=== PATIENT | male | born 1960 | race African-American/Black ===

== ENCOUNTER 2021-12-05 16:44 | Inpatient (IN) ==
[2021-12-05] MEDS ORDERED: PIPERACILLIN/TAZOBACTAM 3,375 MG in SODIUM CHLORIDE 0.9% 100 ML IV STA (17:38)
[2021-12-05] MEDS ORDERED: VANCOMYCIN INJ 1,250 MG in SODIUM CHLORIDE 0.9% 250 ML IV STA (17:38)
[2021-12-05 17:40] LABS: Basophils % 0.3 % (0.0-0.8); Eosinophils # 0.1 10*3/uL (0.0-0.87); Eosinophils % 0.5 % (0.00-10.9); Hematocrit 24.5 VOL% (42.0-52.0); Immature Granulocytes % 0.4 %; Immature Granulocytes Absolute 0.05 #; Lymphocytes # 1.2 10*3/uL (1.4-4.0); Lymphocytes % 10.3 % (21.2-54.2); Mean Corpuscular HGB Conc 32.7 GM/DL (32-36); Mean Corpuscular Volume 83.1 FL (87-102); Mean Platelet Volume 11.8 FL (9.6-12.0); Monocytes % 8.7 % (1.7-12.7); Neutrophils % 79.8 % (38.7-73.9); Platelet Count 221 T/CUMM (130-400); Red Blood Count 2.95 MC/CUMM (3.8-5.5); Red Cell Distribution Width 14.2 % (9.3-17.3); White Blood Count 11.3 T/CUMM (4-12)
[2021-12-05] MEDS ORDERED: PIPERACILLIN/TAZOBACTAM 3,375 MG VIAL IV ONE (17:47)
[2021-12-05] MEDS ORDERED: SODIUM CHLORIDE 0.9% 100 ML IV ONE (17:48)
[2021-12-05 17:50] LABS: Albumin 2.2 G/DL (3.4-5.0); Bilirubin,Total 0.6 MG/DL (0.20-1.00); Calcium 9.2 MG/DL (8.5-10.1); Osmolality,Calculated 275.7 MOS/KG (273-304); Potassium 4.3 MMOL/L (3.5-5.1); Total Protein 8.1 G/DL (6.4-8.2)
[2021-12-05] MEDS ORDERED: ACETAMINOPHEN 325 MG TABLET PO PRN (18:39)
[2021-12-05] MEDS ORDERED: traZODone 50 MG TABLET PO PRN (18:39)
[2021-12-05] MEDS ORDERED: ONDANSETRON 4 MG/2 ML VIAL IV PRN (18:39)
[2021-12-05] MEDS ORDERED: GLUCAGON 1 MG VIAL IM PRN (18:39)
[2021-12-05] MEDS ORDERED: DEXTROSE 10% 250 ML BAG IV PRN (18:39)
[2021-12-05] MEDS ORDERED: MORPHINE 2 MG/1 ML SYRINGE IV PRN (18:39)
[2021-12-05] MEDS: INSULIN REGULAR 100 UNIT/ML SUBCUT SCH (22:00)
[2021-12-05] MEDS: HEPARIN 5,000 UNIT/1 ML VIAL SUBCUT SCH (22:27)
[2021-12-06] MEDS: PIPERACILLIN/TAZOBACTAM 3,375 MG in SODIUM CHLORIDE 0.9% 100 ML IV SCH ×3 (04:01→18:50)
[2021-12-06 04:26] LABS: Basophils % 0.4 % (0.0-0.8); Eosinophils # 0.1 10*3/uL (0.0-0.87); Eosinophils % 1.3 % (0.00-10.9); Hematocrit 23.2 VOL% (42.0-52.0); Hemoglobin 7.4 GM/DL (14.0-18.0); Immature Granulocytes % 0.4 %; Immature Granulocytes Absolute 0.03 #; Lymphocytes # 1.1 10*3/uL (1.4-4.0); Lymphocytes % 13.8 % (21.2-54.2); Mean Corpuscular HGB Conc 31.9 GM/DL (32-36); Mean Corpuscular Volume 84.7 FL (87-102); Mean Platelet Volume 12.1 FL (9.6-12.0); Monocytes % 11.1 % (1.7-12.7); Platelet Count 214 T/CUMM (130-400); Red Blood Count 2.74 MC/CUMM (3.8-5.5); Red Cell Distribution Width 14.4 % (9.3-17.3); White Blood Count 8.2 T/CUMM (4-12)
[2021-12-06 04:53] LABS: Calcium 9.1 MG/DL (8.5-10.1); Osmolality,Calculated 282.1 MOS/KG (273-304); Potassium 3.9 MMOL/L (3.5-5.1)
[2021-12-06] MEDS: INSULIN REGULAR 100 UNIT/ML SUBCUT SCH ×4 (07:40→22:42)
[2021-12-06] MEDS ORDERED: VANCOMYCIN INJ 1,000 MG in SODIUM CHLORIDE 0.9% 250 ML IV PRN (09:00)
[2021-12-06] MEDS: HEPARIN 5,000 UNIT/1 ML VIAL SUBCUT SCH (09:10)
[2021-12-06 11:30] LABS: % Iron Saturation 15.2 % (18-50)
[2021-12-06 11:37] LABS: Folate 4.39 NG/ML (5.38-24.0)
[2021-12-06] MEDS ORDERED: fentaNYL 100 MCG/2 ML VIAL ONE (12:13)
[2021-12-06] MEDS ORDERED: MIDAZOLAM 2 MG/2 ML VIAL ONE (12:13)
[2021-12-06] MEDS ORDERED: LIDOCAINE 1% 50 ML VIAL ONE (12:15)
[2021-12-06] MEDS ORDERED: LACTATED RINGERS 1,000 ML IV SCH (12:30)
[2021-12-06] MEDS ORDERED: ePHEDrine 50 MG/ML VIAL ONE (12:43)
[2021-12-06] MEDS ORDERED: LIDOCAINE 2% 5 ML VIAL ONE (12:50)
[2021-12-06] MEDS ORDERED: SEVOFLURANE 1 UNIT/15 MINUTE INH ONE (12:50)
[2021-12-06] MEDS ORDERED: propofoL 200 MG/20 ML VIAL IV ONE (12:50)
[2021-12-06] MEDS ORDERED: ONDANSETRON 4 MG/2 ML VIAL ONE (12:50)
[2021-12-06] MEDS ORDERED: ACETAMINOPHEN INJ 1,000 MG/100 ML VIAL IV ONE (12:56)
[2021-12-06] MEDS ORDERED: PHENYLEPHRINE 1 MG/10 ML SYRINGE IV ONE (13:04)
[2021-12-06] MEDS ORDERED: GLUCAGON 1 MG VIAL IM PRN (14:35)
[2021-12-06] MEDS ORDERED: DEXTROSE 50% 25 GM/50 ML VIAL IV PRN (14:35)
[2021-12-06 16:36] LABS: Hematocrit 24.3 VOL% (42.0-52.0); Hemoglobin 7.6 GM/DL (14.0-18.0)
[2021-12-06] MEDS: MORPHINE 4 MG/1 ML VIAL IV PRN (18:58)
[2021-12-07] MEDS: oxyCODONE IR 5 MG TABLET PO PRN ×4 (03:03→20:09)
[2021-12-07] MEDS: PIPERACILLIN/TAZOBACTAM 3,375 MG in SODIUM CHLORIDE 0.9% 100 ML IV SCH ×2 (03:04→10:10)
[2021-12-07 05:37] LABS: Basophils % 0.5 % (0.0-0.8); Eosinophils # 0.2 10*3/uL (0.0-0.87); Eosinophils % 2.6 % (0.00-10.9); Hemoglobin 7.7 GM/DL (14.0-18.0); Immature Granulocytes % 0.4 %; Immature Granulocytes Absolute 0.03 #; Lymphocytes % 14.1 % (21.2-54.2); Mean Corpuscular HGB Conc 32.1 GM/DL (32-36); Mean Corpuscular Volume 84.5 FL (87-102); Mean Platelet Volume 11.5 FL (9.6-12.0); Monocytes % 11.5 % (1.7-12.7); Neutrophils % 70.9 % (38.7-73.9); Platelet Count 224 T/CUMM (130-400); Red Blood Count 2.84 MC/CUMM (3.8-5.5); Red Cell Distribution Width 14.1 % (9.3-17.3); White Blood Count 7.3 T/CUMM (4-12)
[2021-12-07] MEDS: MORPHINE 4 MG/1 ML VIAL IV PRN (05:38)
[2021-12-07 05:55] LABS: Calcium 8.5 MG/DL (8.5-10.1); Osmolality,Calculated 274.5 MOS/KG (273-304); Potassium 4.3 MMOL/L (3.5-5.1)
[2021-12-07 06:18] LABS: Risk Ratio 1.72; VLDL Cholesterol 11.6 MG/DL
[2021-12-07] MEDS: FERRIC GLUCONATE COMPLEX 125 MG in SODIUM CHLORIDE 0.9% 100 ML IV SCH (08:42)
[2021-12-07] MEDS: FERROUS SULFATE 325 MG TABLET PO SCH (08:42)
[2021-12-07] MEDS: FOLIC ACID 1 MG TABLET PO SCH (08:42)
[2021-12-07] MEDS: INSULIN REGULAR 100 UNIT/ML SUBCUT SCH ×4 (08:43→21:44)
[2021-12-07] MEDS: SODIUM CHLORIDE 0.9% 1,000 ML IV SCH (10:10)
[2021-12-07] MEDS: FLUCONAZOLE 200 MG TABLET PO SCH (14:00)
[2021-12-07] MEDS: cefTRIAXone 1,000 MG in SODIUM CHLORIDE 0.9% 100 ML IV SCH (14:00)
[2021-12-07] MEDS: INSULIN GLARGINE 100 UNIT/ML SUBCUT SCH (21:44)
[2021-12-08] MEDS: SODIUM CHLORIDE 0.9% 1,000 ML IV SCH ×3 (04:00→18:40)
[2021-12-08 05:51] LABS: Basophils % 0.2 % (0.0-0.8); Eosinophils # 0.1 10*3/uL (0.0-0.87); Eosinophils % 2.2 % (0.00-10.9); Hematocrit 22.4 VOL% (42.0-52.0); Hemoglobin 7.1 GM/DL (14.0-18.0); Immature Granulocytes % 0.5 %; Immature Granulocytes Absolute 0.03 #; Lymphocytes # 1.2 10*3/uL (1.4-4.0); Lymphocytes % 20.4 % (21.2-54.2); Mean Corpuscular HGB Conc 31.7 GM/DL (32-36); Mean Corpuscular Volume 84.5 FL (87-102); Mean Platelet Volume 11.3 FL (9.6-12.0); Monocytes % 13.4 % (1.7-12.7); Neutrophils % 63.3 % (38.7-73.9); Platelet Count 210 T/CUMM (130-400); Red Blood Count 2.65 MC/CUMM (3.8-5.5); Red Cell Distribution Width 14.4 % (9.3-17.3)
[2021-12-08 06:04] LABS: Osmolality,Calculated 282.2 MOS/KG (273-304); Potassium 4.4 MMOL/L (3.5-5.1)
[2021-12-08] MEDS ORDERED: SODIUM CHLORIDE 0.9% 1,000 ML IV PRN (08:05)
[2021-12-08] MEDS: SODIUM BICARBONATE 650 MG TABLET PO SCH ×3 (08:55→21:49)
[2021-12-08] MEDS: INSULIN REGULAR 100 UNIT/ML SUBCUT SCH ×4 (08:55→20:51)
[2021-12-08] MEDS: FLUCONAZOLE 200 MG TABLET PO SCH (08:55)
[2021-12-08] MEDS: FOLIC ACID 1 MG TABLET PO SCH (08:55)
[2021-12-08] MEDS ORDERED: CYANOCOBALAMIN 500 MCG TABLET PO SCH (09:00)
[2021-12-08] MEDS: FERRIC GLUCONATE COMPLEX 125 MG in SODIUM CHLORIDE 0.9% 100 ML IV SCH (09:16)
[2021-12-08] MEDS: cefTRIAXone 1,000 MG in SODIUM CHLORIDE 0.9% 100 ML IV SCH (13:22)
[2021-12-08] MEDS: SKIN HEALING OINT (AQUAPHOR) 50 GM TUBE TOP SCH (15:03)
[2021-12-08] MEDS: oxyCODONE IR 5 MG TABLET PO PRN (18:40)
[2021-12-08] MEDS: INSULIN GLARGINE 100 UNIT/ML SUBCUT SCH (20:51)
[2021-12-09] MEDS: oxyCODONE IR 5 MG TABLET PO PRN ×2 (03:11→11:35)
[2021-12-09 06:27] LABS: Hematocrit 25.7 VOL% (42.0-52.0); Hemoglobin 8.2 GM/DL (14.0-18.0)
[2021-12-09 06:30] LABS: Calcium 9.1 MG/DL (8.5-10.1); Osmolality,Calculated 278.4 MOS/KG (273-304); Potassium 4.3 MMOL/L (3.5-5.1)
[2021-12-09 06:36] LABS: Basophils % 0.6 % (0.0-0.8); Eosinophils # 0.1 10*3/uL (0.0-0.87); Eosinophils % 1.1 % (0.00-10.9); Hemoglobin 8.2 GM/DL (14.0-18.0); Immature Granulocytes % 1.1 %; Immature Granulocytes Absolute 0.07 #; Lymphocytes % 15.8 % (21.2-54.2); Mean Corpuscular HGB Conc 31.5 GM/DL (32-36); Mean Corpuscular Volume 85.5 FL (87-102); Mean Platelet Volume 11.3 FL (9.6-12.0); Monocytes % 11.1 % (1.7-12.7); Neutrophils % 70.3 % (38.7-73.9); Platelet Count 218 T/CUMM (130-400); Red Blood Count 3.04 MC/CUMM (3.8-5.5); Red Cell Distribution Width 14.4 % (9.3-17.3); White Blood Count 6.3 T/CUMM (4-12)
[2021-12-09] MEDS: SODIUM CHLORIDE 0.9% 1,000 ML IV SCH ×2 (06:43→18:22)
[2021-12-09] MEDS ORDERED: SODIUM CHLORIDE 0.9% 500 ML IV ONE (07:36)
[2021-12-09] MEDS: FERRIC GLUCONATE COMPLEX 125 MG in SODIUM CHLORIDE 0.9% 100 ML IV SCH (08:08)
[2021-12-09] MEDS: INSULIN REGULAR 100 UNIT/ML SUBCUT SCH ×5 (08:08→22:17)
[2021-12-09] MEDS: SKIN HEALING OINT (AQUAPHOR) 50 GM TUBE TOP SCH (08:08)
[2021-12-09] MEDS: METOPROLOL TARTRATE 25 MG TABLET PO SCH ×2 (08:09→22:15)
[2021-12-09] MEDS: GABAPENTIN 300 MG CAPSULE PO SCH ×2 (08:12→22:15)
[2021-12-09] MEDS: ASPIRIN EC 81 MG TABLET PO SCH (08:13)
[2021-12-09] MEDS: FOLIC ACID 1 MG TABLET PO SCH (08:13)
[2021-12-09] MEDS: FLUCONAZOLE 200 MG TABLET PO SCH (08:13)
[2021-12-09] MEDS: SODIUM BICARBONATE 650 MG TABLET PO SCH ×3 (08:13→22:15)
[2021-12-09] MEDS ORDERED: diphenhydrAMINE CAP 25 MG CAPSULE PO PRN (10:28)
[2021-12-09] MEDS: cefTRIAXone 1,000 MG in SODIUM CHLORIDE 0.9% 100 ML IV SCH (12:18)
[2021-12-09 13:50] LABS: Calcium 9.1 MG/DL (8.5-10.1); Osmolality,Calculated 283.1 MOS/KG (273-304)
[2021-12-09] MEDS: LORATADINE 10 MG TABLET PO SCH (14:59)
[2021-12-09] MEDS: FAMOTIDINE 20 MG TABLET PO SCH ×2 (14:59→22:15)
[2021-12-09] MEDS: ATORVASTATIN 40 MG TABLET PO SCH (22:15)
[2021-12-09] MEDS: INSULIN GLARGINE 100 UNIT/ML SUBCUT SCH (22:17)
[2021-12-09] MEDS ORDERED: methylPREDNISolone SOD SUC 125 MG/2 ML VIAL IV STA (22:58)
[2021-12-09] MEDS ORDERED: ALBUTEROL/IPRATROPIUM 3 ML NEB RESP TX ONE (23:16)
[2021-12-09] MEDS ORDERED: ENOXAPARIN 60 MG/0.6 ML SYRINGE SUBCUT ONE (23:30)
[2021-12-10] MEDS: SODIUM CHLORIDE 0.9% 1,000 ML IV SCH (04:46)
[2021-12-10 08:24] LABS: Mucus,Urine Occasional /LPF (Occasional); RBC,Urine 3 /HPF (0-4); Squamous Epithelial Cell,Urine Occasional /HPF (0-10); Urine Appearance Clear (Clear); Urine Color Yellow (Yellow)
[2021-12-10 08:25] LABS: Bilirubin,Urine Negative (Negative); Blood, Urine Small mg/dL (Negative); Glucose,Urine (UA) 500 mg/dL (Negative); Ketones,Urine Trace mg/dL (Negative); Nitrite,Urine Negative (Negative); Protein,Urine 100 MG/DL; Urine Specific Gravity 1.015 (1.001-1.035); Urine Urobilinogen 0.2 EU/DL (<2.0)
[2021-12-10 08:37] LABS: Basophils % 0.1 % (0.0-0.8); Hematocrit 26.8 VOL% (42.0-52.0); Hemoglobin 8.6 GM/DL (14.0-18.0); Immature Granulocytes % 0.6 %; Immature Granulocytes Absolute 0.05 #; Lymphocytes # 0.6 10*3/uL (1.4-4.0); Lymphocytes % 7.1 % (21.2-54.2); Mean Corpuscular HGB Conc 32.1 GM/DL (32-36); Mean Platelet Volume 10.8 FL (9.6-12.0); Monocytes % 0.7 % (1.7-12.7); Neutrophils % 91.5 % (38.7-73.9); Platelet Count 227 T/CUMM (130-400); Red Blood Count 3.19 MC/CUMM (3.8-5.5); Red Cell Distribution Width 14.5 % (9.3-17.3); White Blood Count 8.2 T/CUMM (4-12)
[2021-12-10] MEDS: ASPIRIN EC 81 MG TABLET PO SCH (08:48)
[2021-12-10] MEDS: SODIUM BICARBONATE 650 MG TABLET PO SCH ×3 (08:48→21:01)
[2021-12-10] MEDS: FLUCONAZOLE 200 MG TABLET PO SCH (08:49)
[2021-12-10] MEDS: FAMOTIDINE 20 MG TABLET PO SCH ×2 (08:49→20:56)
[2021-12-10] MEDS: INSULIN REGULAR 100 UNIT/ML SUBCUT SCH ×4 (08:49→21:02)
[2021-12-10] MEDS: FERROUS SULFATE 325 MG TABLET PO SCH (08:49)
[2021-12-10] MEDS: FOLIC ACID 1 MG TABLET PO SCH (08:49)
[2021-12-10] MEDS: GABAPENTIN 300 MG CAPSULE PO SCH ×2 (08:49→21:01)
[2021-12-10] MEDS: LORATADINE 10 MG TABLET PO SCH (08:49)
[2021-12-10] MEDS: METOPROLOL TARTRATE 25 MG TABLET PO SCH ×2 (08:49→21:01)
[2021-12-10 08:50] LABS: Osmolality,Calculated 289.2 MOS/KG (273-304); Potassium 4.6 MMOL/L (3.5-5.1)
[2021-12-10] MEDS: SKIN HEALING OINT (AQUAPHOR) 50 GM TUBE TOP SCH (08:50)
[2021-12-10 08:51] LABS: Uric Acid 7.2 MG/DL (3.5-7.2)
[2021-12-10 08:56] LABS: Hypochromia 1+; Lymphocytes 6 % (20-55); Microcytosis 1+; Platelet Estimate Adequate; Segmented Neutrophils 92 % (50-85); Total Cells Counted 100
[2021-12-10] MEDS ORDERED: ENOXAPARIN 60 MG/0.6 ML SYRINGE SUBCUT ONE (09:00)
[2021-12-10] MEDS ORDERED: LEVOFLOXACIN INJ 500 MG/100 ML PREMIX IV SCH (09:30)
[2021-12-10] MEDS: LEVOFLOXACIN INJ 750 MG/150 ML PREMIX IV SCH (11:33)
[2021-12-10] MEDS: oxyCODONE IR 5 MG TABLET PO PRN (12:29)
[2021-12-10] MEDS: ALBUTEROL/IPRATROPIUM 3 ML NEB RESP TX SCH ×2 (12:53→19:44)
[2021-12-10] MEDS: FERRIC GLUCONATE COMPLEX 125 MG in SODIUM CHLORIDE 0.9% 100 ML IV SCH (13:24)
[2021-12-10] MEDS: ATORVASTATIN 40 MG TABLET PO SCH (21:01)
[2021-12-10] MEDS: INSULIN GLARGINE 100 UNIT/ML SUBCUT SCH (21:02)
[2021-12-11] MEDS: ALBUTEROL/IPRATROPIUM 3 ML NEB RESP TX SCH ×4 (00:01→19:18)
[2021-12-11 06:51] LABS: Basophils % 0.1 % (0.0-0.8); Hemoglobin 7.2 GM/DL (14.0-18.0); Immature Granulocytes % 0.7 %; Immature Granulocytes Absolute 0.06 #; Lymphocytes # 0.8 10*3/uL (1.4-4.0); Lymphocytes % 9.5 % (21.2-54.2); Mean Corpuscular HGB Conc 32.7 GM/DL (32-36); Mean Corpuscular Volume 82.7 FL (87-102); Mean Platelet Volume 11.7 FL (9.6-12.0); Monocytes % 9.1 % (1.7-12.7); Neutrophils % 80.6 % (38.7-73.9); Platelet Count 204 T/CUMM (130-400); Red Blood Count 2.66 MC/CUMM (3.8-5.5); Red Cell Distribution Width 14.1 % (9.3-17.3); White Blood Count 8.4 T/CUMM (4-12)
[2021-12-11 07:10] LABS: Calcium 9.3 MG/DL (8.5-10.1); Osmolality,Calculated 286.4 MOS/KG (273-304); Potassium 4.3 MMOL/L (3.5-5.1)
[2021-12-11] MEDS: LORATADINE 10 MG TABLET PO SCH (08:32)
[2021-12-11] MEDS: GABAPENTIN 300 MG CAPSULE PO SCH ×2 (08:32→21:38)
[2021-12-11] MEDS: FERROUS SULFATE 325 MG TABLET PO SCH (08:32)
[2021-12-11] MEDS: METOPROLOL TARTRATE 25 MG TABLET PO SCH ×2 (08:32→21:38)
[2021-12-11] MEDS: SODIUM BICARBONATE 650 MG TABLET PO SCH ×3 (08:32→21:38)
[2021-12-11] MEDS: ASPIRIN EC 81 MG TABLET PO SCH (08:32)
[2021-12-11] MEDS: FAMOTIDINE 20 MG TABLET PO SCH ×2 (08:32→21:38)
[2021-12-11] MEDS: FOLIC ACID 1 MG TABLET PO SCH (08:32)
[2021-12-11] MEDS: SKIN HEALING OINT (AQUAPHOR) 50 GM TUBE TOP SCH (08:32)
[2021-12-11] MEDS: INSULIN REGULAR 100 UNIT/ML SUBCUT SCH ×4 (08:33→21:38)
[2021-12-11] MEDS: FERRIC GLUCONATE COMPLEX 125 MG in SODIUM CHLORIDE 0.9% 100 ML IV SCH (09:52)
[2021-12-11 13:51] LABS: Protein/Creatinine Ratio,Urine 2.5 RATIO
[2021-12-11] MEDS: oxyCODONE IR 5 MG TABLET PO PRN (15:45)
[2021-12-11] MEDS: ATORVASTATIN 40 MG TABLET PO SCH (21:38)
[2021-12-11] MEDS: INSULIN GLARGINE 100 UNIT/ML SUBCUT SCH (21:39)
[2021-12-12] MEDS: ALBUTEROL/IPRATROPIUM 3 ML NEB RESP TX SCH ×4 (00:04→19:35)
[2021-12-12 07:02] LABS: Basophils % 0.2 % (0.0-0.8); Eosinophils % 0.4 % (0.00-10.9); Hematocrit 21.8 VOL% (42.0-52.0); Immature Granulocytes Absolute 0.08 #; Lymphocytes # 1.2 10*3/uL (1.4-4.0); Lymphocytes % 14.9 % (21.2-54.2); Mean Corpuscular HGB Conc 32.1 GM/DL (32-36); Mean Corpuscular Volume 84.2 FL (87-102); Mean Platelet Volume 11.7 FL (9.6-12.0); Monocytes % 7.6 % (1.7-12.7); Neutrophils % 75.9 % (38.7-73.9); Platelet Count 202 T/CUMM (130-400); Red Blood Count 2.59 MC/CUMM (3.8-5.5); Red Cell Distribution Width 14.9 % (9.3-17.3); White Blood Count 8.3 T/CUMM (4-12)
[2021-12-12 07:03] LABS: Calcium 8.3 MG/DL (8.5-10.1); Osmolality,Calculated 285.8 MOS/KG (273-304); Potassium 4.1 MMOL/L (3.5-5.1)
[2021-12-12] MEDS: INSULIN REGULAR 100 UNIT/ML SUBCUT SCH ×4 (08:36→22:16)
[2021-12-12] MEDS: FOLIC ACID 1 MG TABLET PO SCH (08:36)
[2021-12-12] MEDS: ASPIRIN EC 81 MG TABLET PO SCH (08:36)
[2021-12-12] MEDS: GABAPENTIN 300 MG CAPSULE PO SCH ×2 (08:36→21:41)
[2021-12-12] MEDS: SODIUM BICARBONATE 650 MG TABLET PO SCH (08:37)
[2021-12-12] MEDS: DOCUSATE SODIUM 100 MG CAPSULE PO PRN (08:37)
[2021-12-12] MEDS: FERROUS SULFATE 325 MG TABLET PO SCH (08:37)
[2021-12-12] MEDS: LORATADINE 10 MG TABLET PO SCH (08:37)
[2021-12-12] MEDS: METOPROLOL TARTRATE 25 MG TABLET PO SCH ×2 (08:37→21:41)
[2021-12-12] MEDS: SKIN HEALING OINT (AQUAPHOR) 50 GM TUBE TOP SCH (08:37)
[2021-12-12] MEDS: FAMOTIDINE 20 MG TABLET PO SCH ×2 (08:37→21:41)
[2021-12-12] MEDS ORDERED: FUROSEMIDE 20 MG/2 ML VIAL IV ONE (08:40)
[2021-12-12] MEDS ORDERED: MAGNESIUM HYDROXIDE SUSP 30 ML UDCUP PO ONE (09:22)
[2021-12-12] MEDS: FERRIC GLUCONATE COMPLEX 125 MG in SODIUM CHLORIDE 0.9% 100 ML IV SCH (10:03)
[2021-12-12] MEDS ORDERED: ALBUTEROL 2.5 MG/3 ML NEB RESP TX PRN (11:26)
[2021-12-12] MEDS: LEVOFLOXACIN INJ 750 MG/150 ML PREMIX IV SCH (12:12)
[2021-12-12 14:02] LABS: Hematocrit 22.8 VOL% (42.0-52.0); Hemoglobin 7.3 GM/DL (14.0-18.0)
[2021-12-12] MEDS: oxyCODONE IR 5 MG TABLET PO PRN (19:21)
[2021-12-12] MEDS: HEPARIN 5,000 UNIT/1 ML VIAL SUBCUT SCH (21:38)
[2021-12-12] MEDS: ATORVASTATIN 40 MG TABLET PO SCH (21:41)
[2021-12-12] MEDS: INSULIN GLARGINE 100 UNIT/ML SUBCUT SCH (21:50)
[2021-12-13] MEDS: ALBUTEROL/IPRATROPIUM 3 ML NEB RESP TX SCH ×4 (00:03→19:15)
[2021-12-13 04:37] LABS: Basophils % 0.3 % (0.0-0.8); Eosinophils % 0.3 % (0.00-10.9); Immature Granulocytes % 1.2 %; Immature Granulocytes Absolute 0.13 #; Lymphocytes # 1.2 10*3/uL (1.4-4.0); Mean Corpuscular HGB Conc 31.8 GM/DL (32-36); Mean Corpuscular Volume 83.3 FL (87-102); Mean Platelet Volume 10.4 FL (9.6-12.0); Monocytes % 10.4 % (1.7-12.7); Neutrophils % 76.8 % (38.7-73.9); Platelet Count 188 T/CUMM (130-400); Red Blood Count 2.64 MC/CUMM (3.8-5.5); Red Cell Distribution Width 14.9 % (9.3-17.3); White Blood Count 10.4 T/CUMM (4-12)
[2021-12-13 04:51] LABS: Calcium 8.7 MG/DL (8.5-10.1); Osmolality,Calculated 284.4 MOS/KG (273-304); Potassium 4.4 MMOL/L (3.5-5.1)
[2021-12-13] MEDS: FERRIC GLUCONATE COMPLEX 125 MG in SODIUM CHLORIDE 0.9% 100 ML IV SCH (08:56)
[2021-12-13] MEDS: INSULIN REGULAR 100 UNIT/ML SUBCUT SCH ×4 (08:56→22:22)
[2021-12-13] MEDS: METOPROLOL TARTRATE 25 MG TABLET PO SCH ×2 (08:57→22:18)
[2021-12-13] MEDS: FAMOTIDINE 20 MG TABLET PO SCH ×2 (08:57→22:17)
[2021-12-13] MEDS: LORATADINE 10 MG TABLET PO SCH (08:57)
[2021-12-13] MEDS: ASPIRIN EC 81 MG TABLET PO SCH (08:57)
[2021-12-13] MEDS: GABAPENTIN 300 MG CAPSULE PO SCH ×2 (08:57→22:18)
[2021-12-13] MEDS: FERROUS SULFATE 325 MG TABLET PO SCH (08:57)
[2021-12-13] MEDS: FOLIC ACID 1 MG TABLET PO SCH (08:57)
[2021-12-13] MEDS: HEPARIN 5,000 UNIT/1 ML VIAL SUBCUT SCH ×2 (09:21→22:21)
[2021-12-13] MEDS: SKIN HEALING OINT (AQUAPHOR) 50 GM TUBE TOP SCH (09:21)
[2021-12-13] MEDS ORDERED: FUROSEMIDE 40 MG/4 ML VIAL IV ONE ×2 (11:47→15:17)
[2021-12-13] MEDS: oxyCODONE IR 5 MG TABLET PO PRN (19:43)
[2021-12-13] MEDS: ATORVASTATIN 40 MG TABLET PO SCH (22:17)
[2021-12-13] MEDS: INSULIN GLARGINE 100 UNIT/ML SUBCUT SCH (22:17)
[2021-12-14] MEDS: ALBUTEROL/IPRATROPIUM 3 ML NEB RESP TX SCH ×5 (01:32→19:05)
[2021-12-14 05:29] LABS: Basophils % 0.2 % (0.0-0.8); Eosinophils % 0.2 % (0.00-10.9); Hematocrit 21.7 VOL% (42.0-52.0); Immature Granulocytes Absolute 0.13 #; Lymphocytes # 1.2 10*3/uL (1.4-4.0); Lymphocytes % 9.4 % (21.2-54.2); Mean Corpuscular HGB Conc 32.3 GM/DL (32-36); Mean Corpuscular Volume 84.4 FL (87-102); Mean Platelet Volume 11.8 FL (9.6-12.0); Monocytes % 9.7 % (1.7-12.7); Neutrophils % 79.5 % (38.7-73.9); Platelet Count 160 T/CUMM (130-400); Red Blood Count 2.57 MC/CUMM (3.8-5.5); Red Cell Distribution Width 15.2 % (9.3-17.3); White Blood Count 12.6 T/CUMM (4-12)
[2021-12-14 05:43] LABS: Osmolality,Calculated 277.7 MOS/KG (273-304)
[2021-12-14] MEDS: INSULIN REGULAR 100 UNIT/ML SUBCUT SCH ×4 (07:38→22:26)
[2021-12-14] MEDS: SKIN HEALING OINT (AQUAPHOR) 50 GM TUBE TOP SCH (08:16)
[2021-12-14] MEDS: METOPROLOL TARTRATE 25 MG TABLET PO SCH ×2 (08:17→21:20)
[2021-12-14] MEDS: GABAPENTIN 300 MG CAPSULE PO SCH ×2 (08:17→21:20)
[2021-12-14] MEDS: LORATADINE 10 MG TABLET PO SCH (08:17)
[2021-12-14] MEDS: ASPIRIN EC 81 MG TABLET PO SCH (08:17)
[2021-12-14] MEDS: FERROUS SULFATE 325 MG TABLET PO SCH (08:17)
[2021-12-14] MEDS: FAMOTIDINE 20 MG TABLET PO SCH ×2 (08:17→21:20)
[2021-12-14] MEDS: FOLIC ACID 1 MG TABLET PO SCH (08:17)
[2021-12-14] MEDS: FERRIC GLUCONATE COMPLEX 125 MG in SODIUM CHLORIDE 0.9% 100 ML IV SCH (08:18)
[2021-12-14] MEDS: HEPARIN 5,000 UNIT/1 ML VIAL SUBCUT SCH ×2 (08:19→22:26)
[2021-12-14] MEDS: LEVOFLOXACIN INJ 750 MG/150 ML PREMIX IV SCH (09:44)
[2021-12-14] MEDS ORDERED: FUROSEMIDE 40 MG/4 ML VIAL IV ONE (12:40)
[2021-12-14] MEDS ORDERED: metOLazone 5 MG TABLET PO ONE (13:00)
[2021-12-14] MEDS: ATORVASTATIN 40 MG TABLET PO SCH (21:20)
[2021-12-14] MEDS: INSULIN GLARGINE 100 UNIT/ML SUBCUT SCH (21:20)
[2021-12-15] MEDS: ALBUTEROL/IPRATROPIUM 3 ML NEB RESP TX SCH ×4 (00:52→19:30)
[2021-12-15 05:56] LABS: Basophils % 0.1 % (0.0-0.8); Eosinophils % 0.3 % (0.00-10.9); Hemoglobin 6.7 GM/DL (14.0-18.0); Immature Granulocytes % 0.8 %; Immature Granulocytes Absolute 0.11 #; Lymphocytes # 0.8 10*3/uL (1.4-4.0); Lymphocytes % 5.6 % (21.2-54.2); Mean Corpuscular HGB Conc 31.9 GM/DL (32-36); Mean Corpuscular Volume 85.4 FL (87-102); Mean Platelet Volume 12.2 FL (9.6-12.0); Monocytes % 8.9 % (1.7-12.7); Neutrophils % 84.3 % (38.7-73.9); Platelet Count 208 T/CUMM (130-400); Red Blood Count 2.46 MC/CUMM (3.8-5.5); Red Cell Distribution Width 15.2 % (9.3-17.3); White Blood Count 14.2 T/CUMM (4-12)
[2021-12-15 06:06] LABS: Calcium 9.1 MG/DL (8.5-10.1); Osmolality,Calculated 276.5 MOS/KG (273-304); Potassium 3.8 MMOL/L (3.5-5.1)
[2021-12-15] MEDS: INSULIN REGULAR 100 UNIT/ML SUBCUT SCH ×3 (07:46→15:56)
[2021-12-15] MEDS: METOPROLOL TARTRATE 25 MG TABLET PO SCH ×2 (08:12→21:46)
[2021-12-15] MEDS: SKIN HEALING OINT (AQUAPHOR) 50 GM TUBE TOP SCH (08:12)
[2021-12-15] MEDS: GABAPENTIN 300 MG CAPSULE PO SCH ×2 (08:12→21:45)
[2021-12-15] MEDS: FAMOTIDINE 20 MG TABLET PO SCH ×2 (08:13→21:45)
[2021-12-15] MEDS: ASPIRIN EC 81 MG TABLET PO SCH (08:14)
[2021-12-15] MEDS: FERROUS SULFATE 325 MG TABLET PO SCH (08:14)
[2021-12-15] MEDS: FOLIC ACID 1 MG TABLET PO SCH (08:14)
[2021-12-15] MEDS: LORATADINE 10 MG TABLET PO SCH (08:14)
[2021-12-15] MEDS: HEPARIN 5,000 UNIT/1 ML VIAL SUBCUT SCH ×2 (08:15→21:45)
[2021-12-15] MEDS ORDERED: SODIUM CHLORIDE 0.9% 1,000 ML IV PRN (09:07)
[2021-12-15 10:04] LABS: ABG Base Excess 0.2 MMOL/L (-2.5-2.5); ABG HCO3 24.6 MMOL/L (20-26); ABG Oxygen Saturation 90.5 % (95-100); ABG PH 7.372 (7.35-7.45); ABG PO2 62.4 MM HG (80-95); ABG TCO2 24.3 MMOL/L (23-27)
[2021-12-15] MEDS: LINEZOLID INJ 600 MG/300 ML PREMIX IV SCH ×2 (10:50→21:46)
[2021-12-15] MEDS ORDERED: FUROSEMIDE 40 MG/4 ML VIAL IV ONE (11:19)
[2021-12-15] MEDS: oxyCODONE IR 5 MG TABLET PO PRN (13:52)
[2021-12-15] MEDS ORDERED: POLYETHYLENE GLYCOL POWDER 17 GM PACK PO ONE (20:08)
[2021-12-15] MEDS: INSULIN GLARGINE 100 UNIT/ML SUBCUT SCH (21:45)
[2021-12-15] MEDS: ATORVASTATIN 40 MG TABLET PO SCH (21:45)
[2021-12-15] MEDS: MORPHINE 4 MG/1 ML VIAL IV PRN (22:54)
[2021-12-16] MEDS: ALBUTEROL/IPRATROPIUM 3 ML NEB RESP TX SCH ×4 (01:00→19:28)
[2021-12-16] MEDS: INSULIN REGULAR 100 UNIT/ML SUBCUT SCH ×5 (02:08→22:07)
[2021-12-16] MEDS ORDERED: LORazepam 2 MG/1 ML VIAL IV ONE (02:11)
[2021-12-16 06:35] LABS: Basophils % 0.1 % (0.0-0.8); Eosinophils # 0.1 10*3/uL (0.0-0.87); Eosinophils % 0.4 % (0.00-10.9); Hemoglobin 7.3 GM/DL (14.0-18.0); Immature Granulocytes % 0.6 %; Immature Granulocytes Absolute 0.07 #; Lymphocytes # 0.8 10*3/uL (1.4-4.0); Lymphocytes % 6.5 % (21.2-54.2); Mean Corpuscular HGB Conc 31.7 GM/DL (32-36); Mean Corpuscular Volume 85.2 FL (87-102); Mean Platelet Volume 11.6 FL (9.6-12.0); Monocytes % 10.2 % (1.7-12.7); Neutrophils % 82.2 % (38.7-73.9); Platelet Count 221 T/CUMM (130-400); Red Cell Distribution Width 15.2 % (9.3-17.3); White Blood Count 12.4 T/CUMM (4-12)
[2021-12-16 06:51] LABS: Calcium 9.1 MG/DL (8.5-10.1); Osmolality,Calculated 273.9 MOS/KG (273-304); Potassium 3.8 MMOL/L (3.5-5.1)
[2021-12-16] MEDS: ASPIRIN EC 81 MG TABLET PO SCH (09:21)
[2021-12-16] MEDS: FAMOTIDINE 20 MG TABLET PO SCH ×2 (09:21→21:55)
[2021-12-16] MEDS: FOLIC ACID 1 MG TABLET PO SCH (09:21)
[2021-12-16] MEDS: POLYETHYLENE GLYCOL POWDER 17 GM PACK PO SCH (09:22)
[2021-12-16] MEDS: METOPROLOL TARTRATE 25 MG TABLET PO SCH ×2 (09:22→22:09)
[2021-12-16] MEDS: HEPARIN 5,000 UNIT/1 ML VIAL SUBCUT SCH ×2 (09:22→21:56)
[2021-12-16] MEDS: FERROUS SULFATE 325 MG TABLET PO SCH (09:22)
[2021-12-16] MEDS: LORATADINE 10 MG TABLET PO SCH (09:22)
[2021-12-16] MEDS: LINEZOLID INJ 600 MG/300 ML PREMIX IV SCH ×2 (09:25→21:57)
[2021-12-16] MEDS: ATORVASTATIN 40 MG TABLET PO SCH (21:55)
[2021-12-16] MEDS: INSULIN GLARGINE 100 UNIT/ML SUBCUT SCH (22:07)
[2021-12-16] MEDS: GABAPENTIN 100 MG CAPSULE PO SCH (22:10)
[2021-12-16] MEDS: SODIUM CHLORIDE 0.9% 1,000 ML IV SCH (22:30)
[2021-12-17] MEDS: ALBUTEROL/IPRATROPIUM 3 ML NEB RESP TX SCH ×4 (00:41→19:45)
[2021-12-17] MEDS: SKIN HEALING OINT (AQUAPHOR) 50 GM TUBE TOP SCH ×2 (03:02→09:18)
[2021-12-17 06:21] LABS: Basophils % 0.3 % (0.0-0.8); Eosinophils # 0.1 10*3/uL (0.0-0.87); Eosinophils % 0.8 % (0.00-10.9); Hematocrit 23.3 VOL% (42.0-52.0); Hemoglobin 7.5 GM/DL (14.0-18.0); Immature Granulocytes % 0.5 %; Immature Granulocytes Absolute 0.04 #; Lymphocytes # 0.7 10*3/uL (1.4-4.0); Lymphocytes % 9.3 % (21.2-54.2); Mean Corpuscular HGB Conc 32.2 GM/DL (32-36); Mean Corpuscular Volume 83.5 FL (87-102); Mean Platelet Volume 10.5 FL (9.6-12.0); Monocytes % 7.6 % (1.7-12.7); Neutrophils % 81.5 % (38.7-73.9); Platelet Count 267 T/CUMM (130-400); Red Blood Count 2.79 MC/CUMM (3.8-5.5); Red Cell Distribution Width 15.1 % (9.3-17.3); White Blood Count 7.6 T/CUMM (4-12)
[2021-12-17 06:39] LABS: Calcium 8.8 MG/DL (8.5-10.1); Osmolality,Calculated 283.7 MOS/KG (273-304)
[2021-12-17] MEDS: FAMOTIDINE 20 MG TABLET PO SCH ×2 (09:17→21:37)
[2021-12-17] MEDS: FERROUS SULFATE 325 MG TABLET PO SCH (09:17)
[2021-12-17] MEDS: POLYETHYLENE GLYCOL POWDER 17 GM PACK PO SCH (09:17)
[2021-12-17] MEDS: METOPROLOL TARTRATE 25 MG TABLET PO SCH ×2 (09:17→21:37)
[2021-12-17] MEDS: GABAPENTIN 100 MG CAPSULE PO SCH ×2 (09:17→21:37)
[2021-12-17] MEDS: LORATADINE 10 MG TABLET PO SCH (09:17)
[2021-12-17] MEDS: FOLIC ACID 1 MG TABLET PO SCH (09:17)
[2021-12-17] MEDS: INSULIN REGULAR 100 UNIT/ML SUBCUT SCH ×4 (09:18→20:51)
[2021-12-17] MEDS: HEPARIN 5,000 UNIT/1 ML VIAL SUBCUT SCH ×2 (09:18→21:37)
[2021-12-17] MEDS: ASPIRIN EC 81 MG TABLET PO SCH (09:18)
[2021-12-17] MEDS: SODIUM CHLORIDE 0.9% 1,000 ML IV SCH (09:18)
[2021-12-17] MEDS: LINEZOLID INJ 600 MG/300 ML PREMIX IV SCH ×2 (09:21→23:07)
[2021-12-17] MEDS: oxyCODONE IR 5 MG TABLET PO PRN (13:56)
[2021-12-17] MEDS: ATORVASTATIN 40 MG TABLET PO SCH (21:37)
[2021-12-17] MEDS: INSULIN GLARGINE 100 UNIT/ML SUBCUT SCH (21:37)
[2021-12-18] MEDS: ALBUTEROL/IPRATROPIUM 3 ML NEB RESP TX SCH ×4 (01:45→19:52)
[2021-12-18] MEDS: SODIUM CHLORIDE 0.9% 1,000 ML IV SCH ×3 (02:14→11:31)
[2021-12-18] MEDS: oxyCODONE IR 5 MG TABLET PO PRN ×2 (05:38→11:29)
[2021-12-18 06:08] LABS: Basophils # 0.1 10*3/uL (0.0-0.2); Basophils % 0.7 % (0.0-0.8); Eosinophils # 0.2 10*3/uL (0.0-0.87); Eosinophils % 2.7 % (0.00-10.9); Hematocrit 23.4 VOL% (42.0-52.0); Hemoglobin 7.4 GM/DL (14.0-18.0); Immature Granulocytes % 0.6 %; Immature Granulocytes Absolute 0.04 #; Lymphocytes % 15.3 % (21.2-54.2); Mean Corpuscular HGB Conc 31.6 GM/DL (32-36); Mean Corpuscular Volume 83.6 FL (87-102); Mean Platelet Volume 11.1 FL (9.6-12.0); Monocytes % 11.9 % (1.7-12.7); Neutrophils % 68.8 % (38.7-73.9); Platelet Count 309 T/CUMM (130-400); Red Cell Distribution Width 15.1 % (9.3-17.3); White Blood Count 6.8 T/CUMM (4-12)
[2021-12-18 06:26] LABS: Calcium 8.6 MG/DL (8.5-10.1); Osmolality,Calculated 279.7 MOS/KG (273-304)
[2021-12-18] MEDS: INSULIN REGULAR 100 UNIT/ML SUBCUT SCH ×4 (07:57→21:42)
[2021-12-18] MEDS: FERROUS SULFATE 325 MG TABLET PO SCH (10:01)
[2021-12-18] MEDS: FOLIC ACID 1 MG TABLET PO SCH (10:01)
[2021-12-18] MEDS: SKIN HEALING OINT (AQUAPHOR) 50 GM TUBE TOP SCH (10:01)
[2021-12-18] MEDS: METOPROLOL TARTRATE 25 MG TABLET PO SCH ×2 (10:01→21:42)
[2021-12-18] MEDS: HEPARIN 5,000 UNIT/1 ML VIAL SUBCUT SCH ×2 (10:01→21:46)
[2021-12-18] MEDS: POLYETHYLENE GLYCOL POWDER 17 GM PACK PO SCH (10:01)
[2021-12-18] MEDS: LORATADINE 10 MG TABLET PO SCH (10:01)
[2021-12-18] MEDS: GABAPENTIN 100 MG CAPSULE PO SCH ×2 (10:02→21:42)
[2021-12-18] MEDS: ASPIRIN EC 81 MG TABLET PO SCH (10:02)
[2021-12-18] MEDS: FAMOTIDINE 20 MG TABLET PO SCH ×2 (10:02→21:42)
[2021-12-18] MEDS: LINEZOLID INJ 600 MG/300 ML PREMIX IV SCH ×2 (10:13→21:40)
[2021-12-18] MEDS: ATORVASTATIN 40 MG TABLET PO SCH (21:42)
[2021-12-18] MEDS: INSULIN GLARGINE 100 UNIT/ML SUBCUT SCH (21:42)
[2021-12-19] MEDS: ALBUTEROL/IPRATROPIUM 3 ML NEB RESP TX SCH ×4 (01:50→19:27)
[2021-12-19 05:34] LABS: Basophils # 0.1 10*3/uL (0.0-0.2); Basophils % 1.1 % (0.0-0.8); Eosinophils # 0.2 10*3/uL (0.0-0.87); Eosinophils % 3.4 % (0.00-10.9); Hematocrit 24.8 VOL% (42.0-52.0); Hemoglobin 7.8 GM/DL (14.0-18.0); Immature Granulocytes % 0.5 %; Immature Granulocytes Absolute 0.03 #; Lymphocytes # 0.8 10*3/uL (1.4-4.0); Lymphocytes % 13.8 % (21.2-54.2); Mean Corpuscular HGB Conc 31.5 GM/DL (32-36); Mean Corpuscular Volume 84.1 FL (87-102); Mean Platelet Volume 10.7 FL (9.6-12.0); Monocytes % 11.4 % (1.7-12.7); Neutrophils % 69.8 % (38.7-73.9); Platelet Count 303 T/CUMM (130-400); Red Blood Count 2.95 MC/CUMM (3.8-5.5); Red Cell Distribution Width 15.1 % (9.3-17.3); White Blood Count 5.5 T/CUMM (4-12)
[2021-12-19 05:47] LABS: Calcium 8.5 MG/DL (8.5-10.1); Osmolality,Calculated 284.2 MOS/KG (273-304); Potassium 4.1 MMOL/L (3.5-5.1)
[2021-12-19] MEDS: HEPARIN 5,000 UNIT/1 ML VIAL SUBCUT SCH ×2 (08:51→20:36)
[2021-12-19] MEDS: LINEZOLID INJ 600 MG/300 ML PREMIX IV SCH ×2 (08:51→20:40)
[2021-12-19] MEDS: FAMOTIDINE 20 MG TABLET PO SCH ×2 (08:51→20:36)
[2021-12-19] MEDS: METOPROLOL TARTRATE 25 MG TABLET PO SCH ×2 (08:51→20:36)
[2021-12-19] MEDS: POLYETHYLENE GLYCOL POWDER 17 GM PACK PO SCH (08:51)
[2021-12-19] MEDS: ASPIRIN EC 81 MG TABLET PO SCH (08:52)
[2021-12-19] MEDS: FOLIC ACID 1 MG TABLET PO SCH (08:52)
[2021-12-19] MEDS: LORATADINE 10 MG TABLET PO SCH (08:52)
[2021-12-19] MEDS: GABAPENTIN 100 MG CAPSULE PO SCH (08:52)
[2021-12-19] MEDS: FERROUS SULFATE 325 MG TABLET PO SCH (08:52)
[2021-12-19] MEDS: INSULIN REGULAR 100 UNIT/ML SUBCUT SCH ×4 (08:58→20:08)
[2021-12-19] MEDS: SKIN HEALING OINT (AQUAPHOR) 50 GM TUBE TOP SCH (08:58)
[2021-12-19] MEDS: SODIUM CHLORIDE 0.9% 1,000 ML IV SCH (10:55)
[2021-12-19] MEDS ORDERED: FUROSEMIDE 40 MG/4 ML VIAL IV ONE (11:12)
[2021-12-19] MEDS: ATORVASTATIN 40 MG TABLET PO SCH (20:35)
[2021-12-19] MEDS: INSULIN GLARGINE 100 UNIT/ML SUBCUT SCH (20:36)
[2021-12-19] MEDS: DOCUSATE SODIUM 100 MG CAPSULE PO PRN (20:36)
[2021-12-20] MEDS: ALBUTEROL/IPRATROPIUM 3 ML NEB RESP TX SCH ×4 (00:23→19:58)
[2021-12-20 06:43] LABS: Basophils % 0.8 % (0.0-0.8); Eosinophils # 0.2 10*3/uL (0.0-0.87); Eosinophils % 4.6 % (0.00-10.9); Hemoglobin 7.6 GM/DL (14.0-18.0); Immature Granulocytes % 0.4 %; Immature Granulocytes Absolute 0.02 #; Lymphocytes # 0.9 10*3/uL (1.4-4.0); Lymphocytes % 18.7 % (21.2-54.2); Mean Corpuscular HGB Conc 31.7 GM/DL (32-36); Mean Corpuscular Volume 85.1 FL (87-102); Mean Platelet Volume 10.6 FL (9.6-12.0); Monocytes % 10.7 % (1.7-12.7); Neutrophils % 64.8 % (38.7-73.9); Platelet Count 273 T/CUMM (130-400); Red Blood Count 2.82 MC/CUMM (3.8-5.5)
[2021-12-20 07:05] LABS: Calcium 8.8 MG/DL (8.5-10.1); Osmolality,Calculated 289.1 MOS/KG (273-304); Potassium 3.9 MMOL/L (3.5-5.1)
[2021-12-20] MEDS: oxyCODONE IR 5 MG TABLET PO PRN ×2 (07:27→18:48)
[2021-12-20] MEDS: LINEZOLID INJ 600 MG/300 ML PREMIX IV SCH ×2 (08:32→22:05)
[2021-12-20] MEDS: ASPIRIN EC 81 MG TABLET PO SCH (08:33)
[2021-12-20] MEDS: METOPROLOL TARTRATE 25 MG TABLET PO SCH ×2 (08:33→21:57)
[2021-12-20] MEDS: FERROUS SULFATE 325 MG TABLET PO SCH (08:33)
[2021-12-20] MEDS: LORATADINE 10 MG TABLET PO SCH (08:33)
[2021-12-20] MEDS: FOLIC ACID 1 MG TABLET PO SCH (08:33)
[2021-12-20] MEDS: FAMOTIDINE 20 MG TABLET PO SCH ×2 (08:33→21:57)
[2021-12-20] MEDS: SKIN HEALING OINT (AQUAPHOR) 50 GM TUBE TOP SCH (08:34)
[2021-12-20] MEDS: INSULIN REGULAR 100 UNIT/ML SUBCUT SCH ×4 (08:34→22:00)
[2021-12-20] MEDS: HEPARIN 5,000 UNIT/1 ML VIAL SUBCUT SCH ×2 (08:34→22:01)
[2021-12-20] MEDS: POLYETHYLENE GLYCOL POWDER 17 GM PACK PO SCH (08:51)
[2021-12-20] MEDS: FUROSEMIDE 40 MG/4 ML VIAL IV SCH ×2 (12:19→17:21)
[2021-12-20] MEDS: amLODIPine 5 MG TABLET PO SCH (17:21)
[2021-12-20] MEDS: ATORVASTATIN 40 MG TABLET PO SCH (21:57)
[2021-12-20] MEDS: INSULIN GLARGINE 100 UNIT/ML SUBCUT SCH (22:00)
[2021-12-21] MEDS: ALBUTEROL/IPRATROPIUM 3 ML NEB RESP TX SCH ×4 (00:59→19:50)
[2021-12-21] MEDS: FUROSEMIDE 40 MG/4 ML VIAL IV SCH ×3 (03:08→17:19)
[2021-12-21 06:35] LABS: Basophils # 0.1 10*3/uL (0.0-0.2); Eosinophils # 0.3 10*3/uL (0.0-0.87); Eosinophils % 5.1 % (0.00-10.9); Hematocrit 23.1 VOL% (42.0-52.0); Hemoglobin 7.6 GM/DL (14.0-18.0); Immature Granulocytes % 0.4 %; Immature Granulocytes Absolute 0.02 #; Lymphocytes # 1.2 10*3/uL (1.4-4.0); Lymphocytes % 22.9 % (21.2-54.2); Mean Corpuscular HGB Conc 32.9 GM/DL (32-36); Mean Corpuscular Volume 83.4 FL (87-102); Mean Platelet Volume 9.8 FL (9.6-12.0); Monocytes % 10.3 % (1.7-12.7); Neutrophils % 60.3 % (38.7-73.9); Platelet Count 281 T/CUMM (130-400); Red Blood Count 2.77 MC/CUMM (3.8-5.5); White Blood Count 5.1 T/CUMM (4-12)
[2021-12-21 06:50] LABS: Calcium 8.7 MG/DL (8.5-10.1); Potassium 3.9 MMOL/L (3.5-5.1)
[2021-12-21 06:54] LABS: Eosinophils 5 % (0-10); Hypochromia 1+; Lymphocytes 24 % (20-55); Microcytosis 1+; Platelet Estimate Adequate; Segmented Neutrophils 64 % (50-85); Total Cells Counted 100
[2021-12-21] MEDS: INSULIN REGULAR 100 UNIT/ML SUBCUT SCH ×4 (07:54→21:35)
[2021-12-21] MEDS: METOPROLOL TARTRATE 25 MG TABLET PO SCH ×2 (09:13→21:35)
[2021-12-21] MEDS: FAMOTIDINE 20 MG TABLET PO SCH ×2 (09:13→21:35)
[2021-12-21] MEDS: FERROUS SULFATE 325 MG TABLET PO SCH (09:13)
[2021-12-21] MEDS: ASPIRIN EC 81 MG TABLET PO SCH (09:13)
[2021-12-21] MEDS: amLODIPine 5 MG TABLET PO SCH (09:13)
[2021-12-21] MEDS: HEPARIN 5,000 UNIT/1 ML VIAL SUBCUT SCH ×2 (09:13→21:35)
[2021-12-21] MEDS: FOLIC ACID 1 MG TABLET PO SCH (09:13)
[2021-12-21] MEDS: POLYETHYLENE GLYCOL POWDER 17 GM PACK PO SCH (09:13)
[2021-12-21] MEDS: LORATADINE 10 MG TABLET PO SCH (09:13)
[2021-12-21] MEDS: SKIN HEALING OINT (AQUAPHOR) 50 GM TUBE TOP SCH (09:13)
[2021-12-21] MEDS: LINEZOLID INJ 600 MG/300 ML PREMIX IV SCH ×2 (09:14→21:36)
[2021-12-21] MEDS: ATORVASTATIN 40 MG TABLET PO SCH (21:35)
[2021-12-21] MEDS: INSULIN GLARGINE 100 UNIT/ML SUBCUT SCH (21:36)
[2021-12-22] MEDS: ALBUTEROL/IPRATROPIUM 3 ML NEB RESP TX SCH ×4 (00:25→19:10)
[2021-12-22] MEDS: FUROSEMIDE 40 MG/4 ML VIAL IV SCH ×2 (01:14→10:44)
[2021-12-22 06:08] LABS: Basophils % 0.8 % (0.0-0.8); Eosinophils # 0.2 10*3/uL (0.0-0.87); Hematocrit 26.8 VOL% (42.0-52.0); Hemoglobin 8.5 GM/DL (14.0-18.0); Immature Granulocytes % 0.2 %; Immature Granulocytes Absolute 0.01 #; Lymphocytes % 21.2 % (21.2-54.2); Mean Corpuscular HGB Conc 31.7 GM/DL (32-36); Mean Corpuscular Volume 83.5 FL (87-102); Mean Platelet Volume 10.3 FL (9.6-12.0); Monocytes % 8.3 % (1.7-12.7); Neutrophils % 64.5 % (38.7-73.9); Platelet Count 254 T/CUMM (130-400); Red Blood Count 3.21 MC/CUMM (3.8-5.5); White Blood Count 4.8 T/CUMM (4-12)
[2021-12-22 06:23] LABS: Calcium 9.1 MG/DL (8.5-10.1); Osmolality,Calculated 282.2 MOS/KG (273-304); Potassium 3.9 MMOL/L (3.5-5.1)
[2021-12-22] MEDS ORDERED: MAGNESIUM SULF RIDER 2 GM/50 ML PREMIX IV PRN (07:49)
[2021-12-22] MEDS ORDERED: MAGNESIUM SULF RIDER 4 GM/100 ML PREMIX IV PRN (07:49)
[2021-12-22] MEDS: LORATADINE 10 MG TABLET PO SCH (09:00)
[2021-12-22] MEDS: POLYETHYLENE GLYCOL POWDER 17 GM PACK PO SCH (09:00)
[2021-12-22] MEDS: FAMOTIDINE 20 MG TABLET PO SCH ×2 (09:00→21:42)
[2021-12-22] MEDS: METOPROLOL TARTRATE 25 MG TABLET PO SCH ×2 (09:00→21:41)
[2021-12-22] MEDS: FERROUS SULFATE 325 MG TABLET PO SCH (09:00)
[2021-12-22] MEDS: FOLIC ACID 1 MG TABLET PO SCH (09:00)
[2021-12-22] MEDS: amLODIPine 5 MG TABLET PO SCH ×2 (09:00→21:42)
[2021-12-22] MEDS: oxyCODONE IR 5 MG TABLET PO PRN (10:01)
[2021-12-22] MEDS: SKIN HEALING OINT (AQUAPHOR) 50 GM TUBE TOP SCH (10:03)
[2021-12-22] MEDS: INSULIN REGULAR 100 UNIT/ML SUBCUT SCH ×4 (10:03→21:45)
[2021-12-22] MEDS ORDERED: hydrALAZINE 20 MG/1 ML VIAL IV PRN (10:17)
[2021-12-22] MEDS: ASPIRIN EC 81 MG TABLET PO SCH (10:42)
[2021-12-22] MEDS: HEPARIN 5,000 UNIT/1 ML VIAL SUBCUT SCH ×2 (10:53→21:43)
[2021-12-22] MEDS: LINEZOLID INJ 600 MG/300 ML PREMIX IV SCH (10:55)
[2021-12-22] MEDS ORDERED: diphenhydrAMINE CAP 25 MG CAPSULE PO PRN (21:20)
[2021-12-22] MEDS: ATORVASTATIN 40 MG TABLET PO SCH (21:42)
[2021-12-22] MEDS: INSULIN GLARGINE 100 UNIT/ML SUBCUT SCH (21:44)
[2021-12-23] MEDS: ALBUTEROL/IPRATROPIUM 3 ML NEB RESP TX SCH ×4 (00:35→19:38)
[2021-12-23 05:22] LABS: Eosinophils # 0.2 10*3/uL (0.0-0.87); Eosinophils % 4.8 % (0.00-10.9); Hematocrit 23.9 VOL% (42.0-52.0); Hemoglobin 7.7 GM/DL (14.0-18.0); Immature Granulocytes % 0.3 %; Immature Granulocytes Absolute 0.01 #; Lymphocytes # 1.1 10*3/uL (1.4-4.0); Lymphocytes % 26.8 % (21.2-54.2); Mean Corpuscular HGB Conc 32.2 GM/DL (32-36); Mean Corpuscular Volume 82.7 FL (87-102); Mean Platelet Volume 9.5 FL (9.6-12.0); Monocytes % 9.1 % (1.7-12.7); Platelet Count 209 T/CUMM (130-400); Red Blood Count 2.89 MC/CUMM (3.8-5.5); Red Cell Distribution Width 14.9 % (9.3-17.3)
[2021-12-23 05:42] LABS: Calcium 8.8 MG/DL (8.5-10.1); Osmolality,Calculated 281.4 MOS/KG (273-304)
[2021-12-23] MEDS: LORATADINE 10 MG TABLET PO SCH (09:29)
[2021-12-23] MEDS: METOPROLOL TARTRATE 25 MG TABLET PO SCH ×2 (09:29→21:35)
[2021-12-23] MEDS: ASPIRIN EC 81 MG TABLET PO SCH (09:29)
[2021-12-23] MEDS: FUROSEMIDE 40 MG TABLET PO SCH (09:29)
[2021-12-23] MEDS: FERROUS SULFATE 325 MG TABLET PO SCH (09:29)
[2021-12-23] MEDS: FOLIC ACID 1 MG TABLET PO SCH (09:29)
[2021-12-23] MEDS: FAMOTIDINE 20 MG TABLET PO SCH ×2 (09:29→21:35)
[2021-12-23] MEDS: amLODIPine 5 MG TABLET PO SCH ×2 (09:29→21:35)
[2021-12-23] MEDS: INSULIN REGULAR 100 UNIT/ML SUBCUT SCH ×4 (09:30→21:38)
[2021-12-23] MEDS: SKIN HEALING OINT (AQUAPHOR) 50 GM TUBE TOP SCH (09:30)
[2021-12-23] MEDS: POLYETHYLENE GLYCOL POWDER 17 GM PACK PO SCH (09:32)
[2021-12-23] MEDS: HEPARIN 5,000 UNIT/1 ML VIAL SUBCUT SCH ×2 (09:33→21:37)
[2021-12-23] MEDS: oxyCODONE IR 5 MG TABLET PO PRN (12:00)
[2021-12-23] MEDS: ATORVASTATIN 40 MG TABLET PO SCH (21:35)
[2021-12-23] MEDS: INSULIN GLARGINE 100 UNIT/ML SUBCUT SCH (21:37)
[2021-12-24] MEDS: ALBUTEROL/IPRATROPIUM 3 ML NEB RESP TX SCH ×2 (00:21→07:40)
[2021-12-24 06:33] LABS: Basophils % 0.9 % (0.0-0.8); Eosinophils # 0.1 10*3/uL (0.0-0.87); Eosinophils % 2.8 % (0.00-10.9); Hematocrit 24.1 VOL% (42.0-52.0); Hemoglobin 7.7 GM/DL (14.0-18.0); Immature Granulocytes % 0.2 %; Immature Granulocytes Absolute 0.01 #; Lymphocytes # 1.1 10*3/uL (1.4-4.0); Lymphocytes % 23.9 % (21.2-54.2); Mean Corpuscular Volume 83.1 FL (87-102); Mean Platelet Volume 9.9 FL (9.6-12.0); Monocytes % 8.1 % (1.7-12.7); Neutrophils % 64.1 % (38.7-73.9); Platelet Count 198 T/CUMM (130-400); Red Cell Distribution Width 14.8 % (9.3-17.3); White Blood Count 4.7 T/CUMM (4-12)
[2021-12-24 06:53] LABS: Calcium 8.5 MG/DL (8.5-10.1); Potassium 3.9 MMOL/L (3.5-5.1)
[2021-12-24 07:10] LABS: Eosinophils 5 % (0-10); Hypochromia 1+; Lymphocytes 22 % (20-55); Microcytosis 1+; Segmented Neutrophils 63 % (50-85); Total Cells Counted 100
[2021-12-24 07:11] LABS: Platelet Estimate Adequate; Target Cells Slight
[2021-12-24 07:34] VITALS: BP 153/79
[2021-12-24] MEDS: INSULIN REGULAR 100 UNIT/ML SUBCUT SCH ×2 (09:42→11:52)
[2021-12-24] MEDS: SKIN HEALING OINT (AQUAPHOR) 50 GM TUBE TOP SCH (09:43)
[2021-12-24] MEDS: LORATADINE 10 MG TABLET PO SCH (09:43)
[2021-12-24] MEDS: FOLIC ACID 1 MG TABLET PO SCH (09:43)
[2021-12-24] MEDS: FUROSEMIDE 40 MG TABLET PO SCH (09:43)
[2021-12-24] MEDS: HEPARIN 5,000 UNIT/1 ML VIAL SUBCUT SCH (09:43)
[2021-12-24] MEDS: POLYETHYLENE GLYCOL POWDER 17 GM PACK PO SCH (09:43)
[2021-12-24] MEDS: ASPIRIN EC 81 MG TABLET PO SCH (09:43)
[2021-12-24] MEDS: FAMOTIDINE 20 MG TABLET PO SCH (09:43)
[2021-12-24] MEDS: FERROUS SULFATE 325 MG TABLET PO SCH (09:43)
[2021-12-24] MEDS: METOPROLOL TARTRATE 25 MG TABLET PO SCH (09:43)
[2021-12-24] MEDS: amLODIPine 5 MG TABLET PO SCH (09:43)
[2021-12-24] MEDS ORDERED: TUBERCULIN SKIN TEST 0.1 ML SYRINGE INTRADERM ONE (11:00)
== END 2021-12-24 12:04 | DRG 239 ==
LOC: N.ED 16:44 → N.EDINP 18:33 → SUATTDRO 18:33 → N.3E 12-06 12:30
PROVIDERS: ADMIT Internal Medicine; ATTEND Internal Medicine